=== PATIENT | male | born 1970 | race Hispanic/Latino ===

== ENCOUNTER 2024-05-04 10:20 | Day surgery (SDC) | payer BC ==
[2024-05-01 10:53] LABS: BASOPHILS # (AUTO) 0.03 K/uL (0.00-0.20); BASOPHILS % (AUTO) 0.4 % (0.0-5.0); EOSINOPHILS # (AUTO) 0.04 K/uL (0.00-0.70); EOSINOPHILS % (AUTO) 0.6 % (0.0-8.0); HEMATOCRIT 42.5 % (42-54); IMMATURE GRANULOCYTE ABSOLUTE 0.03 K/uL (0-1); LYMPHOCYTES # (AUTO) 1.5 K/uL (1.0-4.8); LYMPHOCYTES % (AUTO) 21.6 % (21.0-51.0); MEAN CORPUSCULAR HEMOGLOBIN 30.9 pg (27.0-33.0); MEAN CORPUSCULAR HGB CONC 33.9 g/dL (32.0-36.0); MEAN CORPUSCULAR VOLUME 91.2 fL (79-99); MONOCYTES # (AUTO) 0.5 K/uL (0.1-1.0); MONOCYTES % (AUTO) 6.4 % (3.0-13.0); NEUTROPHILS % (AUTO) 70.6 % (40.0-77.0); PLATELET COUNT (AUTO) 378 K/uL (130-400); RED BLOOD CELL COUNT(AUTO) 4.66 MIL/uL (4.50-6.20); RED CELL DISTRIBUTION WIDTH 12.9 % (11.0-15.5); WHITE BLOOD COUNT (AUTO) 7.1 K/uL (4.8-10.8)
[2024-05-01 11:02] LABS: POTASSIUM 5.1 mmol/L (3.5-5.1)
[2024-05-01 11:31] VITALS: BP 142/74; PULSE 89; RESP 16
[~2024-05-04] VITALS: Ht 177.8 cm; Wt 89.4 kg
[2024-05-04] VITALS (14 sets, daily range): BP systolic 106–132; BP diastolic 58–78; PULSE 73–88; RESP 14–18
[~2024-05-04 10:20] MED LIST: ASCO500C19 PO; ATOR10 PO; CHOL200026 PO; FEXO-263 PO; FISH1CAP27 PO; FLUT16H NASAL; LOSA1TAB37 PO; MULT-660 PO; TIRZ5PEN SQ
[2024-05-04] MEDS: 0.9%NACL 1000ML 1,000 ML IV ONE (11:32)
[2024-05-04] MEDS: CEFAZOLIN SODIUM 2 GM VIAL ONE (11:33)
[2024-05-04] MEDS ORDERED: DEXAMETHASONE SOD PHOSPHATE 10MG/ML 1ML VIAL ONE (12:20)
[2024-05-04] MEDS ORDERED: LIDOCAINE PF 100MG/5ML (2%) SYRINGE 5ML ONE (12:20)
[2024-05-04] MEDS ORDERED: MIDAZOLAM HCL 1 MG/ML 2ML VIAL ONE (12:20)
[2024-05-04] MEDS ORDERED: PROPOFOL 10 MG/ML 20ML VIAL IV ONE (12:20)
[2024-05-04] MEDS ORDERED: GLYCOPYRROLATE 0.2 MG/ML 5 ML VIAL ONE (12:20)
[2024-05-04] MEDS ORDERED: SUCCINYLCHOLINE CHLORIDE 20 MG/ML 10 ML VIAL ONE (12:20)
[2024-05-04] MEDS ORDERED: FENTANYL CITRATE PF 50 MCG/1 ML 2ML VIAL ONE (12:21)
[2024-05-04] MEDS ORDERED: NEOSTIGMINE METHYLSULFATE 1MG/ML IV ONE (12:21)
[2024-05-04] MEDS ORDERED: ROCURONIUM BROMIDE 10MG/1ML 5ML VL ONE (12:21)
[2024-05-04] MEDS ORDERED: ONDANSETRON 4MG INJ ONE (12:21)
[2024-05-04] MEDS ORDERED: BUPIVACAINE/PF 0.5% 30ML VIAL ONE (13:18)
[2024-05-04] MEDS ORDERED: FAMOTIDINE 20MG VIAL IV ONE (13:22)
[2024-05-04] MEDS ORDERED: ACETAMINOPHEN 1,000 MG/100 ML VIAL IV ONE (13:22)
[2024-05-04] MEDS: CEFAZOLIN SODIUM 2 GM VIAL IVPB ONE (13:33)
== END 2024-05-04 15:45 | disposition home or self-care (01) ==
LOC: DAH 10:20
PROVIDERS: ATTEND Podiatrist
DX: S92.512A Displaced fracture of proximal phalanx of left lesser toe(s), initial encounter for closed fracture (principal); I10 Essential (primary) hypertension; E11.9 Type 2 diabetes mellitus without complications; E78.00 Pure hypercholesterolemia, unspecified; X58.XXXA Exposure to other specified factors, initial encounter; Y93.89 Activity, other specified; Y92.89 Other specified places as the place of occurrence of the external cause; Y99.8 Other external cause status
CPT/HCPCS: 80048; 85025; 36415; 28525; 82948 ×2; 73660; A6260; J3490 ×3; J3010; J1100; J0330; J7030; J2001; J2250; J2704; J2405; J2710; J0665 ×2; J0690 ×2; A6223; A6446; A4649 ×2; A4930; A5120; A4215; A4223; A4222; A4221; A4663